=== PATIENT | female | born 1955 | race Hispanic/Latino ===

== ENCOUNTER 2022-07-02 07:49 | Day surgery (SDC) | payer OTHER, BC ==
[2022-06-27 11:09] LABS: Absolute Lymphocytes (CBC) 2.9 K/uL (0.7-4.9); Hematocrit 38.5 % (36.0-45.0); Lymphocytes % 38.9 % (15.3-44.8); MCV 95.8 fL (80-100); MPV 7.4 fL (7.6-11.3); RBC Red Blood Cell Count 4.02 M/uL (3.86-4.86)
[2022-06-27 11:11] LABS: Specific Gravity 1.013 (1.005-1.030); Urine Bilirubin NEGATIVE (Negative); Urine Blood Negative (Negative); Urine Clarity Clear (Clear); Urine Color Light-Yellow (Yellow); Urine Glucose NEGATIVE (Negative); Urine Protein NEGATIVE (Negative); Urine Urobilinogen Normal (Normal); Urine pH 5.5 (5.0-7.0)
[2022-06-27 11:16] LABS: Protime INR 1.12
[2022-06-27 11:21] LABS: Albumin 3.3 g/dL (3.4-5.0); Bilirubin Total 0.5 mg/dL (0.2-1.0); Potassium 3.9 mmol/L (3.5-5.1); Protein, Total 8.3 g/dL (6.4-8.2)
--- NOTE | 2022-06-27 13:55 | EKG ---
Test Date: 2022-06-27 Test Time: 10:22:46 Assembly Instructions Writer: SEBLE MEASUREMENT RESULTS: Intervals: Rate: 65 [place]: 154 QRSD: 88 QT: 414 QTc: 430 [place]: P: 9 [place]: 154 QRS: 41 T: 6 INTERPRETIVE STATEMENTS: Normal sinus rhythm Possible Inferior infarct, age undetermined Abnormal ECG Compared to ECG 11/23/2007 18:49:31 No significant changes Electronically Signed On 06-27-22 13:54:54 CDT by Van Figueroa
[2022-07-02] MEDS ORDERED: CELECOXIB 100 MG CAPSULE ONE (08:16)
[2022-07-02] MEDS ORDERED: GABAPENTIN 100 MG CAP ONE (08:16)
[2022-07-02] MEDS ORDERED: CEFAZOLIN 2 GM IN 0.9% NACL 0 GM/0 ML BAG ONE (08:17)
[2022-07-02] MEDS ORDERED: ACETAMINOPHEN 500 MG TAB ONE (08:17)
[2022-07-02] MEDS ORDERED: Oxycodone HCl/Acetaminophen 1 TAB TAB ONE (08:17)
[2022-07-02] MEDS ORDERED: Ringers Lactate 0 ML IV ONE (08:17)
[2022-07-02 14:28] VITALS: BP 134/84; TEMP 98.4; O2SAT 96
== END 2022-07-02 09:55 | disposition home or self-care (01) ==
LOC: OR 07:49
PROVIDERS: ATTEND Orthopaedic Surgery
DX: M25.562 Pain in left knee (principal); M25.561 Pain in right knee; M17.0 Bilateral primary osteoarthritis of knee; I10 Essential (primary) hypertension; Z53.09 Procedure and treatment not carried out because of other contraindication
CPT/HCPCS: 36415; 80053; 81003; 85025; 85610; 85730; 86850; 86900; 86901; 93005; J0690; J7120

== ENCOUNTER 2022-07-30 07:59 | Observation (INO) | payer OTHER, BC ==
[2022-07-25 10:34] LABS: Specific Gravity 1.014 (1.005-1.030); Urine Bilirubin NEGATIVE (Negative); Urine Blood Negative (Negative); Urine Clarity Clear (Clear); Urine Color Light-Yellow (Yellow); Urine Glucose NEGATIVE (Negative); Urine Protein NEGATIVE (Negative); Urine Urobilinogen Normal (Normal); Urine pH 5.5 (5.0-7.0)
[2022-07-29 09:06] LABS: Absolute Lymphocytes (CBC) 2.8 K/uL (0.7-4.9); Hematocrit 34.1 % (36.0-45.0); Lymphocytes % 37.1 % (15.3-44.8); MCV 91.1 fL (80-100); MPV 7.4 fL (7.6-11.3); RBC Red Blood Cell Count 3.74 M/uL (3.86-4.86)
[2022-07-29 09:08] LABS: Protime INR 1.19
[2022-07-29 09:12] LABS: SARS-CoV-2 Antigen Rapid Res Negative (Negative)
[2022-07-29 09:26] LABS: Bilirubin Total 0.6 mg/dL (0.2-1.0); Potassium 3.1 mmol/L (3.5-5.1); Protein, Total 7.5 g/dL (6.4-8.2)
[2022-07-30] MEDS ORDERED: CELECOXIB 100 MG CAPSULE ONE (08:18)
[2022-07-30] MEDS ORDERED: CEFAZOLIN SODIUM 2 GM/VIAL ONE (08:18)
[2022-07-30] MEDS ORDERED: GABAPENTIN 100 MG CAP ONE (08:18)
[2022-07-30] MEDS ORDERED: Ringers Lactate 1,000 ML IV ONE ×2 (08:19→11:57)
[2022-07-30] MEDS ORDERED: ACETAMINOPHEN 500 MG TAB ONE (08:19)
[2022-07-30] MEDS ORDERED: Oxycodone HCl/Acetaminophen 1 TAB TAB ONE (08:19)
[2022-07-30] MEDS ORDERED: FENTANYL CITR 100 MCG/2 ML ONE (09:31)
[2022-07-30] MEDS ORDERED: dexAMETHasone 10 MG/ML VIAL ONE ×2 (09:31→10:36)
[2022-07-30] MEDS ORDERED: LIDOCAINE 1% MPF 5 ML VIAL ONE (09:31)
[2022-07-30] MEDS ORDERED: EPINEPHRINE/PF 1 MG/ML AMP ONE (09:31)
[2022-07-30] MEDS ORDERED: MIDAZOLAM HCL 2 MG/2 ML INJ ONE (09:31)
[2022-07-30] MEDS ORDERED: BUPIVACAINE 0.25% PF 30 ML VIAL ONE (09:32)
[2022-07-30] MEDS ORDERED: HYDROMORPHONE HCL 1 MG/ML INJ ONE (10:06)
[2022-07-30] MEDS ORDERED: ONDANSETRON 4 MG/2 ML VIAL ONE ×3 (10:13→14:13)
[2022-07-30] MEDS ORDERED: propofoL 200 MG/20 ML VIAL IV ONE (10:13)
[2022-07-30] MEDS ORDERED: LIDOCAINE 2% MPF 5 ML VIAL ONE (10:13)
[2022-07-30] MEDS ORDERED: TRANEXAMIC ACID 1,000 MG/10 ML VIAL IV ONE (10:19)
[2022-07-30] MEDS ORDERED: NS 0.9% VIAL 20 ML ONE (10:34)
[2022-07-30] MEDS ORDERED: KETOROLAC 30 MG/ML INJ ONE (10:36)
[2022-07-30] MEDS ORDERED: KETAMINE HCL 500 MG/5 ML VIAL ONE (10:36)
[2022-07-30] MEDS ORDERED: EPHEDRINE SULF 50 MG/ML VIAL ONE (10:43)
[2022-07-30] MEDS ORDERED: NS 0.9% VIAL 10 ML ONE (10:47)
--- NOTE | 2022-07-30 12:48 | P.BOP ---
Preoperative diagnosis: left knee arthritis Postoperative diagnosis: same Primary procedure: left tka Estimated blood loss: 75ccs Anesthesia: General Complications: None Transferred to: Recovery Room Condition: Good
[2022-07-30] MEDS ORDERED: DOCUSATE NA 100 MG CAP PO PRN (12:49)
[2022-07-30] MEDS: HYDROMORPHONE HCL 1 MG/ML INJ ONE ×4 (13:29→14:00)
--- OUTSIDE RECORDS SUMMARY | 2022-07-30 14:10 | XMS REPORT | Continuity of Care Document ---
:1955 Author Organization [facility] t Address [address] [place] [address] [address]. [address] [place] [address] Care Team Providers Name Role Phone BRENDA GURROLA Attending Clinician Unavailable Payers Payer Name Policy Type Policy Number Effective Date Expiration Date [facility] [id number] 2017 00:00:00 Problems This patient has no known problems. Allergies, Adverse Reactions, Alerts Allergy Allergy Status Severity Reaction(s) Onset Inactive Treating Comm ents Source Name Type Date Date Clinician NO KNOWN Drug Active [facility] ALLERGIE Class [facility] Medications This patient has no known medications. Procedures This patient has no known procedures. Encounters Start End Encounter Admission Attending Care Care Encounter Source Date/Time Date/Time Type Type Clinicians Facility Department ID 2020-12-29 2020-12-29 Outpatient Silvia GURROLA [facility] [id number] Univers 14:30:00 14:30:00 BRENDA [id number] [facility] 2020-12-29 2020-12-29 Outpatient Silvia GURROLA [facility] [id number] Univers 14:30:00 14:30:00 BRENDA [facility] 2020-12-08 2020-12-08 Outpatient Silvia GURROLA [facility] [id number] Univers 14:00:00 14:00:00 BRENDA [facility] 2020-12-08 2020-12-08 Outpatient Silvia GURROLA [facility] [id number] Univers 14:00:00 14:00:00 BRENDA [id number] [facility] Results Test Description Test Time Test Comments Results Result Comments Source SARS-CoV-2 (COVID-19), RT-PCR/TMA 2021-11-16 14:21:22 Test Item Value Reference Range Interpretation Comme nts SARS-CoV-2 INTERPRETATION NEGATIVE SEE NOTE S ARS-CoV-2 RNA NOT (test code = 97480) DETECTED Negative results do not preclude SARS-C oV-2 infection and should notb e used as the sole basis for patient management deci sions. Negativeresults must be combined with clinical o bservations, patient history ,and epidemiological information. Optimum specime n types and timingfor peak viral levels during infectio ns caused by SARS-CoV-2 have notbeen determined. Col lection of multiple specim ens or types ofspecimens may be necessary to detect virus. I mproper specimencollect ion and handling, sequence variab ility under primers/probes, or organism present below t he limit of detection may l ead to falsenegative r esults. Positive and negative pr edictive values oftesting are h ighly dependent on prevalence. False negative testresults are more likely when prevalence is h igh. SOURCE (test code = 31397) NOT SPECIFIED Note: Methodology is Jean Lisa Real-Time RT-PCR. The expected result or reference range is NEGATI VE (Not Detected). For more information regarding COVID -19 testing to include clinica linformation, methodology det ail, intended use, FDA author ization andrecommended fact sheets for patients or a lthcare providers, see NewTest Announcement: S ARS-CoV-2 (COVID-19) by N AAT at URL below (note,fact shee ts are provided by method given in report:https:// [email or web address] [email or web address] [email or web address]/ Alternatively, see downloadable PDF fact sheet at:[email or web address]. [email or web address] UNLE SS OTHERWISE INDICATED, ALL TESTING PERFORMED ATCLINICAL PATH [facility], [place]. [address] [place] [address], [place] [address] 4 TESTING AND REGULATING TECHNICIAN: Sania ROGERS [id number] CAP ACCREDITATION N O. [id number]
[2022-07-30] MEDS: CEFAZOLIN 1 GM in NA CHLORIDE 0.9% 50 ML IVPB SCH (17:00)
[2022-07-30] MEDS: HYDROCODONE/APAP 7.5/325 MG TAB PO PRN (21:37)
[2022-07-30 23:16] VITALS: O2SAT 95; BMI 29.5
--- NOTE | 2022-07-31 00:58 | OP ---
Date of Procedure: 07/30/2022 Surgeon: Boo Dow MD Preoperative Diagnosis: Severe left knee osteoarthritis. Postoperative Diagnosis: Severe left knee osteoarthritis. Procedure: Left total knee arthroplasty using the Jeevesard total knee system. Estimated Blood Loss: 75 cc. Complications: There were no complications. Specimens: There were no pathology specimens sent. Indications For Operation: Ms. Jiang is a 66-year-old female who has been troubled with her left k nee for quite some time despite extensive conservative management. The pain does limit her ADLs and risks, benefits, and alternatives to total knee arthroplasty have been discussed with her. She state s she understands things as presented and wishes to proceed. It should be noted that we did have to delay her case previously because she had a small scratch from an animal on her knee, but this has co mpletely healed and no sign of further problems. Procedure In Detail: The patient had a block placed in the holding area and was then taken to the op erating room and general anesthesia was easily obtained by the Anesthesia staff. Following this, a t ourniquet was placed on the left thigh and the left lower extremity was then prepped and draped in [facility] sterile fashion for the procedure. After this, the leg was then elevated and gently exsanguinate d using Tra wrap. The knee was bent and tourniquet was raised. A standard anterior incision was omid en down carefully through skin and soft tissue. Meticulous hemostasis being maintained using Bovie e lectrocautery. The appropriate level was then exploited. We were able to expose the extensor mechan ism. A archie was made at the superior medial aspect of the extensor mechanism and a standard medial p arapatellar arthrotomy was then performed with liberation of approximately 30 cc of rather normal-dwight earing synovial fluid. Following this, the knee was examined and was found to have [id number]-[id number]-bjrj turcios ges and complete loss of chondral surface of the medial compartment less involved with the patellofem oral joint and lateral compartment, although there were degenerative changes here as well. There als o was seen a fairly large anterior osteophyte, which may very well have kept her from having full kne e extension. After this, the small amount of fat pad was removed as well as the medial and lateral m enisci as well as the anterior and posterior cruciate ligaments. The knee was then exposed superiorl y and an intramedullary alignment guide was then used and the distal cut was then made. Following th is, it was then sized to a size 60. The femoral cutting block was then used to complete the remainde r of the cuts. After this, the posterior cruciate retractors placed and the tibia was cut in standar d fashion. It was found to be quite a bit more reduced down medially. After this, it was then trial ed and comes to full extension, very slightly loose laterally as compared to medial. There was a ani y slight medial recession done and checked for any osteophytes in this area. These were removed. Th is allowed for a more balanced knee passive very slightly, more laxed laterally than medially, but de finitely stable and coming to full extension. The patella was then calipered and cut with a new saw blade and the smallest patella was then used, leaving 14 mm of patella. This was then brought throug h range of motion, and is found to track ideally within the construct. After this, the trial instrum ents were removed and the box was then cut in standard fashion. The bone plug was placed and the tib ia was punched. The surfaces were prepped for cementation and the final components with the exceptio n of the final polyethylene tray were then placed and held in place, removing all unsupported cement until cement is dry. After this, the knee was then brought again through range of motion and the pat nguyễn does glide excellently and does appear to be balanced. The trial of polyethylene was removed. It was searched for any average cement. After this, the final polyethylene and locking bar placed. The wound was copiously irrigated and the extensor mechanism then repaired using heavy Ethibond sutur es. This was followed by irrigation and closure of skin with Vicryl followed by josé manuel. The patien t was then placed in a well-padded sterile dressing, awakened, and taken to recovery room in good condition. There wer e no complications. SE/MODL Voice ID: [id number] Report ID: [id number]
[2022-07-31] MEDS: CEFAZOLIN 1 GM in NA CHLORIDE 0.9% 50 ML IVPB SCH ×2 (01:00→09:58)
[2022-07-31 03:28] LABS: Hematocrit 32.5 % (36.0-45.0)
[2022-07-31] MEDS: HYDROCODONE/APAP 7.5/325 MG TAB PO PRN ×2 (03:49→10:12)
[2022-07-31] MEDS: ENOXAPARIN 30 MG/0.3 ML SQ SCH ×2 (05:47→09:59)
[2022-07-31] MEDS ORDERED: PNEUMOCOCCAL VACCINE 0.5 ML IMVAC ONE (08:00)
[2022-07-31 12:31] VITALS: BP 116/58; TEMP 97.7
--- NOTE | 2022-07-31 12:50 | EKG ---
Test Date: 2022-07-30 Test Time: 13:56:22 Marketing Research Coordinator: AUDRA MEASUREMENT RESULTS: Intervals: Rate: 76 OK: 162 QRSD: 86 QT: 438 QTc: 492 [place]: P: 66 [place]: 162 QRS: 69 T: 45 INTERPRETIVE STATEMENTS: Sinus rhythm with frequent premature ventricular complexes Low voltage QRS Cannot rule out Anterior infarct, age undetermined Abnormal ECG Compared to ECG 06/27/2022 10:22:46 Ventricular premature complex(es) now present Low QRS voltage now present Myocardial infarct finding still present Electronically Signed On 07-31-22 12:50:12 CDT by Giuliano Stark
--- NOTE | 2022-07-31 15:09 | P.CNS ---
Date of Consult: 07/31/22 Reason for Consult: med management Requesting Physician: Boo Dow Chief Complaint: Left total knee replacement Allergies No Known Allergies Allergy (Verified 07/25/22 09:28) Home Medications: Bupropion *Xl* [Wellbutrin XL*] 1 tab PO DAILY 06/27/22 Levothyroxine [Synthroid*] 1 tab PO DAILY 06/27/22 Oxybutynin Chloride [Ditropan*] 1 tab PO DAILY 06/27/22 Zolpidem Tartrate [Ambien] 1 tab PO BEDTIME 06/27/22 Losartan Potassium 1 tab PO DAILY 07/25/22 Enoxaparin Sodium [Lovenox 40 MG INJ] 40 mg SQ DAILY #20 ml 07/31/22 Hydrocodone 7.5/APAP 325 [[place] 7.5/325 mg*] 1 tab PO Q4H PRN #30 tab 07/31/22 - Past Medical/Surgical History Diabetic: No -: Graves Ds -: HTN -: c section - Family History Mother History Unknown: Yes Medical History: Heart disease Notes: arthritis Father Medical History: Other (see notes) Notes: alcoholism - Social History Smoking Status: Former smoker Alcohol use: No CD- Drugs: No Caffeine use: Yes Place of Residence: Home Review of Systems 10-point ROS is otherwise unremarkable Physical Examination Temp Pulse Resp BP Pulse Ox 97.7 F 76 14 116/58 L 96 07/31/22 12:00 07/31/22 12:00 07/31/22 12:00 07/31/22 12:00 07/31/22 12:00 General: Alert, In no apparent distress, Oriented x2 HEENT: Atraumatic, PERRLA, Mucous membr. moist/pink, EOMI, Sclerae nonicteric Neck: Supple, 2+ carotid pulse no bruit, No LAD, Without JVD or thyroid abnormality Respiratory: Clear to auscultation bilaterally, Normal air movement Cardiovascular: Regular rate/rhythm, Normal S1 S2 Gastrointestinal: Normal bowel sounds, Hypoactive, Soft and benign, Non- distended, No tenderness Musculoskeletal: Tenderness (appropriately) Integumentary: No rashes Neurological: Normal gait, Normal speech, Normal tone, Normal affect Lymphatics: No axilla or inguinal lymphadenopathy Laboratory Data (last 24 hrs) 07/31/22 02:52: Hgb 11.1 L, Hct 32.5 L - Problems (1) Status post total left knee replacement Current Visit: Yes Status: Acute (2) HTN (hypertension) Current Visit: Yes Status: Acute
== END 2022-07-31 16:58 ==
LOC: OR 07:59 → 4TH 14:03
PROVIDERS: ADMIT Orthopaedic Surgery; ATTEND Orthopaedic Surgery
PROC: 0SRD069 Replacement of Left Knee Joint with Oxidized Zirconium on Polyethylene Synthetic Substitute, Cemented, Open Approach (ICD-10-PCS; principal; 2022-07-30 10:00)
DX: M17.12 Unilateral primary osteoarthritis, left knee (principal); I10 Essential (primary) hypertension; E05.00 Thyrotoxicosis with diffuse goiter without thyrotoxic crisis or storm; M06.9 Rheumatoid arthritis, unspecified; K21.9 Gastro-esophageal reflux disease without esophagitis; Z87.891 Personal history of nicotine dependence; Z79.01 Long term (current) use of anticoagulants; Z79.899 Other long term (current) drug therapy; Z20.822 Contact with and (suspected) exposure to COVID-19; Z82.49 Family history of ischemic heart disease and other diseases of the circulatory system
CPT/HCPCS: 27447; 93005; 85025; 36415 ×2; 86900; 86850; 85610; 86901; 88304; 88311; 85730; 85018; 85014; 81003; 80053; 90471; 90732; 97110; 97116; 97139; 97161; 97530; 94010; 87811; G0379; J2704; J0171; J2001 ×2; J1650 ×2; J2250; J3010; J1100 ×2; A4216 ×2; J1170 ×3; J7120 ×2; J2405 ×3; J0690 ×3; G0378